=== PATIENT | female | born 1975 | race Caucasian/White ===

== ENCOUNTER 2016-12-09 08:47 | Emergency (ER) | payer OTHER, SELFPAY ==
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
[2016-12-09] MEDS ORDERED: Ketorolac Tromethamine 60 MG/2 ML VIAL ONE (09:52)
== END 2016-12-09 10:57 | disposition home or self-care (01) ==
LOC: ERS 08:47
DX: S12.601A Unspecified nondisplaced fracture of seventh cervical vertebra, initial encounter for closed fracture (principal); S60.511A Abrasion of right hand, initial encounter; F41.9 Anxiety disorder, unspecified; I10 Essential (primary) hypertension; F32.9 Major depressive disorder, single episode, unspecified; F17.210 Nicotine dependence, cigarettes, uncomplicated; V49.9XXA Car occupant (driver) (passenger) injured in unspecified traffic accident, initial encounter
CPT/HCPCS: 70450; 71010; 72125; 96372; J1885

== ENCOUNTER 2017-04-25 06:54 | Day surgery (SDC) | payer BC ==
[2017-04-25] MEDS ORDERED: diphenhydrAMINE 50 MG CAP PO SCH (08:00)
[2017-04-25] MEDS ORDERED: predniSONE 50 MG TAB PO SCH (08:00)
[2017-04-25 08:31] VITALS: BP 125/82; TEMP 97.8
--- NOTE | 2017-04-25 12:20 | CT ---
CERVICAL MYELOGRAM CT CERVICAL SPINE WITH COTNRAST: HISTORY: Neck pain with left arm radiculopathy. Cervical spine fracture. Prior surgery. FINDINGS: After explaining the procedure and answering all questions, the patient was placed prone on the fluor oscopy table. Sterile technique, buffered local anesthesia, fluoroscopic guidance, and a posterior L 2-3 approach were used to carefully advance a 22 gauge spinal needle to the thecal sac. A total volu me of 8 cc Isovue 300-M contrast was instilled into the thecal sac under fluorosocpic control. The n eedle was removed. The patient was positioned to move contrast to the cervical spine carefully. The patient tolerated the procedure well and was eventually transferred to CT in good condition for furt her imaging. She was monitored in the holding area post procedure and eventually discharged in good condition. [employer] images show small irregular calcific density projecting just superolateral to the left L3 trans verse process at the expected location of the left renal shadow and the left renal hilum. There is n arrowing of the central canal at the L3-4 level on the fluoroscopic images. Nondisplaced fracture involving the right C7 superior facet is less visible than on the prior study. Also apparent is a healing nondisplaced fracture of the inferior left C7 facet. C2-3: Mild osteophytosis. Central canal and neural foramen are patent. C3-4: Mild osteophyte/disk complex with mild central canal stenosis. Mild right foraminal stenosis. C4-5: Posterior osteophyte/disk complex with moderate central canal stenosis. Neural foramen are pa tent. C5-6: Anterior operative fixation. Central canal and neural foramen are patent. C6-7: Disk space narrowing. Thoracic spine and neural foramen are patent. C7-T1: Central canal and neural foramen are patent. IMPRESSION: 1. Anterior operative fixation at the C5-6 level without evidence of hardware complication. 2. Mild to moderate degenerative changes as detailed above. Stenosis is greatest at the right C3-4 neural foramen. Clinical correlation regarding the right C4 dermatome is required. 3. Little healing of the right C7 superior facet fracture is apparent. Healing left C7 inferior fac et fracture is barely apparent. 4. Central canal stenosis at the L3-4 level. 5. Probable left renal calculus. POS: [facility]
[2017-04-25] MEDS ORDERED: Iopamidol-M 300 61% 15 ML VIAL ONE (16:15)
== END 2017-04-25 10:30 | disposition home or self-care (01) ==
LOC: RAD 06:54
PROVIDERS: ATTEND Neurological Surgery
PROC: B02B1ZZ Computerized Tomography (CT Scan) of Spinal Cord using Low Osmolar Contrast (ICD-10-PCS; principal; 2017-04-25)
DX: M54.2 Cervicalgia (principal); M54.12 Radiculopathy, cervical region; S12.600A Unspecified displaced fracture of seventh cervical vertebra, initial encounter for closed fracture; F17.200 Nicotine dependence, unspecified, uncomplicated; Z79.899 Other long term (current) drug therapy
CPT/HCPCS: 62302; 72126